=== PATIENT | male | born 1990 | race Caucasian/White ===

== ENCOUNTER 2017-07-12 13:05 | Emergency (ER) | payer MEDICAID ==
[2017-07-12] MEDS ORDERED: Ketorolac 60 MG/2 ML SDV ONE (17:38)
[2017-07-12] MEDS ORDERED: Methocarbamol 500 MG Tab ONE (17:45)
[2017-07-12] MEDS ORDERED: Ibuprofen 800 MG Tab ONE (17:45)
[2017-07-12] MEDS ORDERED: predniSONE 10 MG Tab ONE (17:45)
[2017-07-12 17:59] VITALS: BP 155/77
--- NOTE | 2017-07-12 20:17 | EDM.PDOC ---
ED HPI GENERAL MEDICAL PROBLEM - General Chief Complaint: Back Pain or Injury Stated Complaint: BACK PAIN Time Seen by Provider: 07/12/17 17:20 Source of Information: Reports: Patient History Limitations: Reports: No Limitations - History of Present Illness INITIAL COMMENTS - FREE TEXT/NARRATIVE: According to patient he was getting out of his bed in the morning and felt a sudden sharp pain in his right lower back and buttock and since then he has been having pain in his right buttock. Pain radiates into his posterior thigh. he feels tingling his right leg on and off. Pain get worse with certain twisting movement of the lower back and not constant. but gets to severity 10/ 10 at times. He has tried some motrin at home. no weakness in the extremities. No saddle numbness. No incontinence of urine or stool. No fall or trauma to the back. Onset: Today Onset Date: 07/12/17 Onset Time: 07:00 Severity: Severe Worsens with: Reports: Movement Associated Symptoms: Denies: Confusion, Fever/Chills, Headaches, Loss of Appetite, Nausea/Vomiting, Rash, Seizure, Shortness of Breath, Weakness - Related Data Allergies Allergy/AdvReac Type Severity Reaction Status Date / Time Penicillins Allergy Swelling Verified 11/20/16 01:21 Home Meds: Home Meds NK [No Known Home Meds] 07/21/14 [History] Past Medical History HEENT History: Reports: Impaired Vision Musculoskeletal History: Reports: Fracture Neurological History: Reports: Headaches, Chronic, Migraines Psychiatric History: Reports: Anxiety Dermatologic History: Reports: Psoriasis - Infectious Disease History Infectious Disease History: Reports: Chicken Pox - Past Surgical History Musculoskeletal Surgical History: Reports: Other (See Below) Social & Family History - Family History Family Medical History: Noncontributory - Tobacco Use Smoking Status *Q: Current Every Day Smoker Years of Tobacco use: 13 Packs/Tins Daily: 1 Used Tobacco, but Quit: No Second Hand Smoke Exposure: No - Caffeine Use Caffeine Use: Reports: Coffee, Energy Drinks, Soda - Alcohol Use Days Per Week of Alcohol Use: 2 Number of Drinks Per Day: 12 Total Drinks Per Week: 24 - Recreational Drug Use Recreational Drug Use: No Drug Use in Last 12 Months: Yes Recreational Drug Type: Reports: Marijuana/Hashish ED ROS GENERAL - Review of Systems Review Of Systems: See Below Constitutional: Denies: Fever, Chills, Decreased Appetite HEENT: Denies: Throat Pain, Throat Swelling Respiratory: Denies: Cough, Sputum Cardiovascular: Denies: Chest Pain, Lightheadedness GI/Abdominal: Denies: Abdominal Pain, Nausea, Vomiting Musculoskeletal: Reports: Back Pain. Denies: Joint Pain, Joint Swelling Skin: Denies: Pruritis, Rash Neurological: Denies: Confusion, Dizziness, Headache, Tingling, Difficulty Walking ED EXAM, GENERAL - Physical Exam Exam: See Below Exam Limited By: No Limitations General Appearance: Alert, WD/WN, Mild Distress Eye Exam: Bilateral Eye: EOMI, PERRL Ears: Normal External Exam, Normal Canal, Hearing Grossly Normal, Normal TMs Nose: Normal Inspection, Normal Mucosa, No Blood Throat/Mouth: Normal Inspection, Normal Lips, Normal Teeth, Normal Gums, Normal Oropharynx, Normal Voice, No Airway Compromise Head: Atraumatic, Normocephalic Neck: Normal Inspection, Supple, Non-Tender, Full Range of Motion Respiratory/Chest: No Respiratory Distress, Lungs Clear, Normal Breath Sounds, No Accessory Muscle Use, Chest Non-Tender Cardiovascular: Normal Peripheral Pulses, Regular Rate, Rhythm, No Edema, No Gallop, No JVD, No Murmur, No Rub Back Exam: Normal Inspection, Full Range of Motion, Paraspinal Tenderness ( right lower lumbar.), Other (tender over the right SI joitn to pressure. Spasm of the right gluteal muscles.). No: Vertebral Tenderness Course - Vital Signs Text/Narrative:: Pt reassured that he has strained his right SI joint with gluteal muscle spasm. Might have happened from sudden turning activity, and patient is tall big candace. The gluteal muscle spasm is irritating his sciatic nerve causing the tingling. pt did receive toradol 60mg IM in the emergency room. I have advised intermittent heat to the right lower back every 2-3 hrs. motrin 800mg 3 times daily. Tapering dose of prednisone. Robaxin 100mg at bedtime. Avoid driving when on robaxin. Rest. Followup in clinic if not better for further workup. Last Recorded V/S: Last Vital Signs Temp 97.7 F 07/12/17 17: Pulse 89 07/12/17 17: Resp 20 07/12/17 17: BP 155/77 H 07/12/17 17:29 Pulse Ox 99 07/12/17 17:29 - Orders/Labs/Meds Meds: Medications Discontinued Medications Generic Name Dose Route Start Last Admin Trade Name Danyell PRN Reason Stop Dose Admin Ketorolac Tromethamine Confirm 07/12/17 17:38 07/12/17 17:35 Toradol Administered 07/12/17 17:39 60 mg Dose Administration 60 mg .ROUTE .STK-MED ONE Departure - Departure Time of Disposition: 17:40 Disposition: Home, Self-Care 01 Condition: Good Clinical Impression: Sacroiliac strain - Discharge Information Referrals: PCP,None [Primary Care Provider] - Forms: ED Department Discharge Additional Instructions: Take meds as ordered, Prednisone 10mg tab, take 6 tabs day 1, day 2 take 5 tabs , day 3 take 4 tabs, day 4 take 3 tabs. Methocaramol 500mg at bedtime, Ibuprophen 800mg take 1 tab every 8 hrs. - Problem List & Annotations (1) Sacroiliac strain SNOMED Code(s): 475128391 Code(s): S39.012A - STRAIN OF MUSCLE, FASCIA AND TENDON OF LOWER BACK, INIT Status: Acute Current Visit: Yes - Problem List Review Problem List Initiated/Reviewed/Updated: Yes - Assessment/Plan Assessment:: Right SI joint strain Plan: Pt reassured that he has strained his right SI joint with gluteal muscle spasm. Might have happened from sudden turning activity, and patient is tall big candace. The gluteal muscle spasm is irritating his sciatic nerve causing the tingling. pt did receive toradol 60mg IM in the emergency room. I have advised intermittent heat to the right lower back every 2-3 hrs. motrin 800mg 3 times daily. Tapering dose of prednisone. Robaxin 100mg at bedtime. Avoid driving when on robaxin. Rest. Followup in clinic if not better for further workup.
== END 2017-07-12 17:52 | disposition home or self-care (01) ==
LOC: LB.ED 13:05
DX: S39.012A Strain of muscle, fascia and tendon of lower back, initial encounter (principal); L40.9 Psoriasis, unspecified; F17.210 Nicotine dependence, cigarettes, uncomplicated; Z88.0 Allergy status to penicillin; X50.1XXA Overexertion from prolonged static or awkward postures, initial encounter
CPT/HCPCS: 99283; A9270; J1885

== ENCOUNTER 2017-12-19 04:59 | Emergency (ER) | payer SELFPAY ==
[2017-12-19] MEDS ORDERED: Sodium Chloride 0.9% 10 ML Syringe FLUSH PRN (05:10)
[2017-12-19] MEDS ORDERED: Ondansetron 4 MG/2 ML SDV IVPUSH ONE (05:11)
[2017-12-19] MEDS ORDERED: Sodium Chloride 0.9% 1,000 ML IV SCH (05:15)
[2017-12-19] MEDS ORDERED: Ondansetron 4 MG Tab.DIS ONE (05:25)
--- NOTE | 2017-12-19 06:45 | EDM.PDOC ---
ED HPI GENERAL MEDICAL PROBLEM - General Chief Complaint: Abdominal Pain Stated Complaint: abd pain Time Seen by Provider: 12/19/17 05:20 Source of Information: Reports: Patient History Limitations: Reports: No Limitations - History of Present Illness INITIAL COMMENTS - FREE TEXT/NARRATIVE: Patient started having Nausea, vomiting and crampy abdominal pain since Midnight. He had a bowel movement at 03:00 that was normal. No blood in emesis or bowel movement. The pain comes and goes when he vomits. He was pain free by the time we were evaluating him in the ED. No urinary symptoms or fever but he has felt chilled. Onset: Today, Sudden Onset Date: 12/19/17 Onset Time: 00:01 Duration: Hour(s): (5), Waxing/Waning Location: Reports: Abdomen Quality: Reports: Other (Cramping) Severity: Moderate Improves with: Reports: Other (Vomiting) Worsens with: Reports: None Context: Reports: Other (Stomach flu is occurring in the community.) Associated Symptoms: Reports: Fever/Chills, Loss of Appetite Left Upper Abdominal Pain Score (Numeric/FACES): 5 - Related Data Allergies Allergy/AdvReac Type Severity Reaction Status Date / Time Penicillins Allergy Swelling Verified 11/20/16 01:21 Home Meds: Home Meds NK [No Known Home Meds] 07/21/14 [History] Past Medical History HEENT History: Reports: Allergic Rhinitis, Impaired Vision Gastrointestinal History: Reports: Other (See Below) Other Gastrointestinal History: abd pain Musculoskeletal History: Reports: Fracture Neurological History: Reports: Headaches, Chronic, Migraines Psychiatric History: Reports: Anxiety Dermatologic History: Reports: Psoriasis - Infectious Disease History Infectious Disease History: Reports: Chicken Pox - Past Surgical History Musculoskeletal Surgical History: Reports: Other (See Below) Social & Family History - Family History Family Medical History: Noncontributory - Tobacco Use Smoking Status *Q: Current Every Day Smoker Years of Tobacco use: 10 Packs/Tins Daily: 1 Used Tobacco, but Quit: No Second Hand Smoke Exposure: No - Caffeine Use Caffeine Use: Reports: Coffee, Energy Drinks, Soda, Tea - Alcohol Use Days Per Week of Alcohol Use: 1 Number of Drinks Per Day: 1 Total Drinks Per Week: 1 - Recreational Drug Use Recreational Drug Use: Yes Drug Use in Last 12 Months: Yes Recreational Drug Type: Reports: Marijuana/Hashish Recreational Drug Use Frequency: Daily ED ROS GENERAL - Review of Systems Review Of Systems: See Below Constitutional: Reports: Chills, Decreased Appetite HEENT: Reports: No Symptoms Respiratory: Reports: No Symptoms Cardiovascular: Reports: No Symptoms Endocrine: Reports: No Symptoms GI/Abdominal: Reports: Abdominal Pain (Crampy pain that comes and goes with emesis.), Decreased Appetite, Vomiting : Reports: No Symptoms Musculoskeletal: Reports: No Symptoms Skin: Reports: No Symptoms Neurological: Reports: No Symptoms Psychiatric: Reports: No Symptoms Hematologic/Lymphatic: Reports: No Symptoms Immunologic: Reports: No Symptoms ED EXAM, GI/ABD - Physical Exam Exam: See Below Exam Limited By: No Limitations General Appearance: Alert, WD/WN, No Apparent Distress Eyes: Bilateral: Normal Appearance, EOMI Ears: Normal External Exam, Normal Canal, Hearing Grossly Normal, Normal TMs Nose: Normal Inspection, Normal Mucosa, No Blood Throat/Mouth: Normal Inspection, Normal Lips, Normal Teeth, Normal Gums, Normal Oropharynx, Normal Voice, No Airway Compromise Head: Atraumatic, Normocephalic Neck: Normal Inspection, Supple, Non-Tender, Full Range of Motion Respiratory/Chest: No Respiratory Distress, Lungs Clear, Normal Breath Sounds, No Accessory Muscle Use, Chest Non-Tender Cardiovascular: Normal Peripheral Pulses GI/Abdominal Exam: Normal Bowel Sounds, Soft, Non-Tender, No Organomegaly, No Distention, No Abnormal Bruit, No Mass, Pelvis Stable Back Exam: Normal Inspection, Full Range of Motion, NT Extremities: Normal Inspection, Normal Range of Motion, Non-Tender, Normal Capillary Refill, No Pedal Edema Neurological: Alert, Oriented, CN II-XII Intact, Normal Cognition, Normal Gait, Normal Reflexes, No Motor/Sensory Deficits Psychiatric: Normal Affect, Normal Mood Skin Exam: Warm, Dry, Intact, Normal Color, No Rash Lymphatic: No Adenopathy Course - Vital Signs Text/Narrative:: Uneventful ED course. He got immediate relieft with IV Zofran and IV Normal Saline. His labs and CT scan of the abdomen were all normal and he will go home on Zofran 4 mg po q 6 hours prn, clear liquid diet and advance as tolerated and follow up with PCP this week or in ED if not getting better. Last Recorded V/S: Last Vital Signs Temp 36.9 C 12/19/17 05:23 Pulse 94 12/19/17 05:23 Resp 18 12/19/17 05:23 BP Pulse Ox 99 12/19/17 05:23 - Orders/Labs/Meds Orders: Active Orders 24 hr Category Date Time Status Abdomen Pelvis w Cont [CT] Stat Exams 12/19/17 05:09 Taken Sodium Chloride 0.9% [Normal Saline] 1,000 ml Med 12/19/17 05:15 Active IV ASDIRECTED Sodium Chloride 0.9% [Saline Flush] Med 12/19/17 05:10 Active 10 ml FLUSH ASDIRECTED PRN Saline Lock Insert [OM.PC] Routine Oth 12/19/17 05:10 Ordered Medication Orders Sodium Chloride (Normal Saline) 1,000 mls @ 1,000 mls/hr IV ASDIRECTED KAMLESH Sodium Chloride (Saline Flush) 10 ml FLUSH ASDIRECTED PRN PRN Reason: Keep Vein Open Labs: Laboratory Tests 12/19/17 12/19/17 12/19/17 Range/Units 05:15 05:15 06:00 WBC 11.0 D (4.0-11.0) K/uL RBC 5.26 (4.50-6.50) M/uL Hgb 16.4 (13.0-18.0) g/dL Hct 45.6 (40.0-54.0) % MCV 87 (76-96) fL MCH 31.2 (27.0-32.0) pg MCHC 36.0 H (31.0-35.0) g/dL RDW 12.5 (11.0-16.0) % Plt Count 149 L (150-400) K/uL MPV 11.3 H (6.0-10.0) fL Neut % (Auto) 90.9 H (45.0-70.0) % Lymph % (Auto) 3.6 L (20.0-40.0) % [place] % (Auto) 4.7 (3.0-10.0) % Eos % (Auto) 0.7 L (1.0-5.0) % Baso % (Auto) 0.1 (0.0-0.5) % Neut # (Auto) 10.02 H (2.00-7.50) K/uL Lymph # (Auto) 0.40 L (1.50-4.00) K/uL [place] # (Auto) 0.52 (0.20-0.80) K/uL Eos # (Auto) 0.08 (0.04-0.40) K/uL Baso # (Auto) 0.01 L (0.02-0.10) K/uL Sodium 139 (136-145) mmol/L Potassium 3.9 (3.5-5.1) mmol/L Chloride 102 (98-107) mmol/L Carbon Dioxide 25.6 (21.0-32.0) mmol/L Anion Gap 15.3 H (5.0-15.0) mmol/L BUN 15 (8-26) mg/dL Creatinine 1.02 (0.70-1.30) mg/dL Est Cr Clr Drug Dosing TNP Estimated GFR (MDRD) > 60 (>60) MLS/MIN BUN/Creatinine Ratio 14.7 (6-25) Glucose 138 H D (74-100) mg/dL Calcium 8.6 (8.5-10.1) mg/dL Total Bilirubin 0.7 D (0.0-1.0) mg/dL AST 15 (15-37) U/L ALT 46 (12-78) U/L Alkaline Phosphatase 68 (46-116) U/L Total Protein 7.5 (6.4-8.2) g/dL Albumin 4.1 (3.4-5.0) g/dL Globulin 3.4 (2.2-4.2) g/dL Albumin/Globulin Ratio 1.2 (0.8-2.0) Urine Color Yellow Urine Appearance Clear (CLEAR) Urine pH 8.5 H (5.0-8.0) Ur Specific [place] 1.020 (1.003-1.030) Urine Protein Trace H (NEGATIVE) mg/dL Urine Glucose (UA) Negative (NEGATIVE) mg/dL Urine Ketones Negative (NEGATIVE) mg/dL Urine Occult Blood Negative (NEGATIVE) Urine Nitrite Negative (NEGATIVE) Urine Bilirubin Negative (NEGATIVE) Urine Urobilinogen 0.2 (0.2-1.0) E.U./dL Ur Leukocyte Esterase Negative (NEGATIVE) Urine RBC Not seen /HPF Urine WBC 0-5 H /HPF Ur Squamous Epith Cells Few /HPF Meds: Medications Generic Name Dose Route Start Last Admin Trade Name Freq PRN Reason Stop Dose Admin Sodium Chloride 1,000 mls @ 1,000 mls/hr 12/19/17 05:15 Normal Saline IV ASDIRECTED KAMLESH Sodium Chloride 10 ml 12/19/17 05:10 Saline Flush FLUSH ASDIRECTED PRN Keep Vein Open Discontinued Medications Generic Name Dose Route Start Last Admin Trade Name Freq PRN Reason Stop Dose Admin Ondansetron HCl 4 mg 12/19/17 05:11 12/19/17 05:23 Zofran IVPUSH 12/19/17 05:12 4 mg ONETIME ONE Administration Departure - Departure Time of Disposition: 06:51 Disposition: Home, Self-Care 01 Condition: Good Clinical Impression: Gastroenteritis and colitis, viral - Discharge Information Referrals: PCP,None [Primary Care Provider] - - My Orders Last 24 Hours: My Active Orders 12/19/17 05:09 Abdomen Pelvis w Cont [CT] Stat 12/19/17 05:10 Sodium Chloride 0.9% [Saline Flush] 10 ml FLUSH ASDIRECTED PRN Saline Lock Insert [OM.PC] Routine 12/19/17 05:15 Sodium Chloride 0.9% [Normal Saline] 1,000 ml IV ASDIRECTED - Assessment/Plan Last 24 Hours: My Active Orders 12/19/17 05:09 Abdomen Pelvis w Cont [CT] Stat 12/19/17 05:10 Sodium Chloride 0.9% [Saline Flush] 10 ml FLUSH ASDIRECTED PRN Saline Lock Insert [OM.PC] Routine 12/19/17 05:15 Sodium Chloride 0.9% [Normal Saline] 1,000 ml IV ASDIRECTED
--- NOTE | 2017-12-19 08:27 | CT ---
DATE OF SERVICE: 12/19/17 CLINICAL DATA: Abdominal pain ENHANCED ABDOMEN AND PELVIC CT: Multislice acquisition through the abdomen and pelvis with IV, but without oral contrast was performed. Breathing motion artifact degrades image quality. No priors. The lung bases appear clear. There is diffuse fatty infiltration of the liver. No focal hepatic lesions. The gallbladder appears normal. The spleen appears normal. 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 The pancreas appears normal. The right and left adrenals appear normal. The right and left kidneys appear normal. No nephrocalcinosis or nephrolithiasis. No hydronephrosis or hydroureter. The bladder is partially fluid-filled and appears normal. The appendix is not dilated. No evidence of appendicitis. There are a few scattered air-fluid levels within the small bowel. No dilated loops of bowel. Enteritis should be considered. No free air. No free fluid. No dilated loops of bowel. No adenopathy. No aortic aneurysm or dissection. The bladder is partially fluid-filled. It appears normal. There is a small umbilical hernia containing fat. IMPRESSION: 1) A few scattered air-fluid levels in the small bowel. No dilated loops of small bowel. Enteritis should be considered. 2) Fatty infiltration of the liver. No other significant findings. [id number] MTDD
== END 2017-12-19 09:01 | disposition home or self-care (01) ==
LOC: LB.ED 04:59
DX: A08.4 Viral intestinal infection, unspecified (principal); F17.210 Nicotine dependence, cigarettes, uncomplicated; Z88.0 Allergy status to penicillin
CPT/HCPCS: 36415; 74177; 80053; 81001; 85025; 96374; 99284; A9270; J2405

== ENCOUNTER 2018-02-03 09:27 | Emergency (ER) | payer MEDICAID ==
--- NOTE | 2018-02-03 09:43 | EDM.PDOC ---
ED HPI GENERAL MEDICAL PROBLEM - General Chief Complaint: Upper Extremity Injury/Pain Stated Complaint: ELBOW PAIN Time Seen by Provider: 02/03/18 09:38 Source of Information: Reports: Patient History Limitations: Reports: No Limitations - History of Present Illness INITIAL COMMENTS - FREE TEXT/NARRATIVE: 27 yr male presents with pain, swelling and bruising to left elbow. States he fell at home about 1 week ago when getting into her vehicle and then fell again Tuesday. States he is in a hurry to get to work and his employment gets upset when people are late for work. Location: Reports: Upper Extremity, Left Severity: Moderate Improves with: Reports: Immobilization, Rest, Other (elevation) Worsens with: Reports: Movement Treatments [employer]HA[employer]: Reports: Other (see below) (reginaldo wrap) Left Elbow Pain Score (Numeric/FACES): 6 - Related Data Allergies Allergy/AdvReac Type Severity Reaction Status Date / Time Penicillins Allergy Swelling Verified 02/03/18 09:37 Home Meds: Home Meds NK [No Known Home Meds] 07/21/14 [History] Past Medical History HEENT History: Reports: Allergic Rhinitis, Impaired Vision Gastrointestinal History: Reports: Other (See Below) Other Gastrointestinal History: abd pain Musculoskeletal History: Reports: Fracture Neurological History: Reports: Headaches, Chronic, Migraines Psychiatric History: Reports: Anxiety Dermatologic History: Reports: Psoriasis - Infectious Disease History Infectious Disease History: Reports: Chicken Pox - Past Surgical History Musculoskeletal Surgical History: Reports: Other (See Below) Social & Family History - Family History Family Medical History: Noncontributory - Tobacco Use Smoking Status *Q: Current Every Day Smoker Years of Tobacco use: 10 Packs/Tins Daily: 1 Used Tobacco, but Quit: No Second Hand Smoke Exposure: No - Caffeine Use Caffeine Use: Reports: Coffee, Energy Drinks, Soda, Tea - Alcohol Use Days Per Week of Alcohol Use: 1 Number of Drinks Per Day: 1 Total Drinks Per Week: 1 - Recreational Drug Use Recreational Drug Use: Yes Drug Use in Last 12 Months: Yes Recreational Drug Type: Reports: Marijuana/Hashish Recreational Drug Use Frequency: Daily Review of Systems - Review of Systems Review Of Systems: See Below Constitutional: Reports: No Symptoms Musculoskeletal: Reports: Arm Pain, Other (swelling to left forearm) Skin: Reports: Bruising ED EXAM, GENERAL - Physical Exam Exam: See Below Exam Limited By: No Limitations General Appearance: Alert, No Apparent Distress Head: Atraumatic, Normocephalic Respiratory/Chest: No Respiratory Distress Extremities: Normal Capillary Refill, Arm Pain, Other (Swelling and bruising noted distal to left elbow, to forearm. Limited extension of left arm at elbow joint.). No: Increased Warmth Neurological: Alert, Oriented Psychiatric: Normal Affect, Normal Mood Skin Exam: Warm, Dry, Intact Course - Vital Signs Last Recorded V/S: Last Vital Signs Temp 98 F 02/03/18 09:56 Pulse 97 02/03/18 09:56 Resp 16 02/03/18 09:56 BP 145/79 H 02/03/18 09:56 Pulse Ox 100 02/03/18 09:56 - Orders/Labs/Meds Orders: Active Orders 24 hr Category Date Time Status Elbow Min 3V Lt [CR] Stat Exams 02/03/18 09:40 Taken - Re-Assessments/Exams Free Text/Narrative Re-Assessment/Exam: 02/03/18 15:56 LE 10:05 X-ray to left elbow completed. Old fracture noted to elbow. Pt states he did injure this arm about 1 year ago. Reginaldo wrap applied to area. Recommend reginaldo wrap to area, ice to area for 48 hour, keep arm elevated at level of heart, not above head and not dangling. No heavy lifting, pushing or pulling with left arm. 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 Note to be off of work for 48 hour to rest arm. Departure - Departure Time of Disposition: 10:10 Disposition: Home, Self-Care 01 Condition: Good Clinical Impression: Injury of left forearm - Discharge Information Referrals: PCP,None [Ordering Only Provider] - Forms: ED Department Discharge Additional Instructions: Ice to area and elevate as much as possible. Can use ibuprofen take 600 mg or 3 tablets 4 x day. Limit movement as much as possible. - My Orders Last 24 Hours: My Active Orders 02/03/18 09:40 Elbow Min 3V Lt [CR] Stat - Assessment/Plan Last 24 Hours: My Active Orders 02/03/18 09:40 Elbow Min 3V Lt [CR] Stat
[2018-02-03 10:02] VITALS: BP 145/79
--- NOTE | 2018-02-03 17:48 | CR ---
DATE OF SERVICE: 02/03/18 CLINICAL DATA: injury left elbow LEFT ELBOW: No priors. There are multiple osseous densities located adjacent to the lateral aspect of the radial head and lateral epicondyle of the distal humerus. The largest osseous density measures 13 mm in its maximum dimension. These may represent bony avulsions or loose bodies. They could be ossification within the lateral collateral ligament complex. No joint effusion. No other significant findings. [id number] [facility]
== END 2018-02-03 10:20 | disposition home or self-care (01) ==
LOC: LB.ED 09:27
DX: S50.12XA Contusion of left forearm, initial encounter (principal); F17.210 Nicotine dependence, cigarettes, uncomplicated; Z88.0 Allergy status to penicillin; W19.XXXA Unspecified fall, initial encounter
CPT/HCPCS: 73080-LT; 99283

== ENCOUNTER 2018-11-24 07:05 | Emergency (ER) | payer MEDICAID, OTHER ==
[2018-11-24] MEDS ORDERED: Cyclobenzaprine 10 MG Tab ONE (07:25)
[2018-11-24] MEDS ORDERED: predniSONE 10 MG Tab ONE (07:25)
[2018-11-24] MEDS ORDERED: Acetaminophen/HYDROcodone 325-5 MG Tab ONE (07:25)
[2018-11-24 07:29] VITALS: BP 129/66
--- NOTE | 2018-11-28 08:02 | EDM.PDOC ---
ED HPI GENERAL MEDICAL PROBLEM - General Chief Complaint: Neck Problem Stated Complaint: LUMP ON NECK Time Seen by Provider: 11/24/18 07:39 Source of Information: Reports: Patient History Limitations: Reports: No Limitations - History of Present Illness INITIAL COMMENTS - FREE TEXT/NARRATIVE: This is a 28yo M here for neck pain. He has had difficulty moving the neck since this am and is facing left. He has not had any recent injuries and denies any neck issues in the past. Onset: Sudden Duration: Hour(s): Location: Reports: Neck Quality: Reports: Ache Severity: Severe Improves with: Reports: None Worsens with: Reports: Movement Associated Symptoms: Reports: No Other Symptoms Neck Pain Score (Numeric/FACES): 10 - Related Data Allergies Allergy/AdvReac Type Severity Reaction Status Date / Time Penicillins Allergy Swelling Verified 02/03/18 09:37 Home Meds: Home Meds NK [No Known Home Meds] 07/21/14 [History] Past Medical History - Past Health History Medical/Surgical History: Denies Medical/Surgical History HEENT History: Reports: Allergic Rhinitis, Impaired Vision Gastrointestinal History: Reports: Other (See Below) Other Gastrointestinal History: abd pain Musculoskeletal History: Reports: Fracture, Other (See Below) Other Musculoskeletal History: hx fractured left arm Neurological History: Reports: Headaches, Chronic, Migraines Psychiatric History: Reports: Anxiety Dermatologic History: Reports: Psoriasis - Infectious Disease History Infectious Disease History: Reports: Chicken Pox - Past Surgical History Musculoskeletal Surgical History: Reports: Other (See Below) Other Musculoskeletal Surgeries/Procedures:: left arm deformed due to fracture not healing correctly Social & Family History - Family History Family Medical History: Noncontributory - Tobacco Use Smoking Status *Q: Current Every Day Smoker Years of Tobacco use: 10 Packs/Tins Daily: 0.5 Used Tobacco, but Quit: No Second Hand Smoke Exposure: No - Caffeine Use Caffeine Use: Reports: Coffee - Recreational Drug Use Recreational Drug Use: Yes Recreational Drug Type: Reports: Marijuana/Hashish Recreational Drug Use Frequency: Rarely ED ROS GENERAL - Review of Systems Review Of Systems: ROS reveals no pertinent complaints other than HPI. ED EXAM, GENERAL - Physical Exam Exam: See Below Exam Limited By: No Limitations General Appearance: Alert, WD/WN, Moderate Distress Eye Exam: Bilateral Eye: EOMI, PERRL Ears: Normal External Exam Nose: Normal Inspection Throat/Mouth: Normal Inspection Head: Atraumatic, Normocephalic Neck: Limited Range of Motion, Tender Lateral Respiratory/Chest: No Respiratory Distress, Lungs Clear, Normal Breath Sounds Cardiovascular: Normal Peripheral Pulses, Regular Rate, Rhythm GI/Abdominal: Normal Bowel Sounds Extremities: Normal Inspection Neurological: Alert, Oriented, CN II-XII Intact Psychiatric: Normal Affect, Normal Mood Skin Exam: Warm, Dry, Intact Course - Vital Signs Last Recorded V/S: Last Vital Signs Temp 36.1 C 11/24/18 07:27 Pulse 86 11/24/18 07:27 Resp 16 11/24/18 07:27 BP 129/66 11/24/18 07:27 Pulse Ox 99 11/24/18 07:27 - Orders/Labs/Meds Meds: Medications Discontinued Medications Generic Name Dose Route Start Last Admin Trade Name Freq PRN Reason Stop Dose Admin Hydrocodone Bitart/Acetaminophen 10 tab 11/24/18 07:25 [place] 325-5 Mg .ROUTE 11/24/18 07:26 .STK-MED ONE Cyclobenzaprine HCl 150 mg 11/24/18 07:25 Flexeril .ROUTE 11/24/18 07:26 .STK-MED ONE Prednisone 150 mg 11/24/18 07:25 Prednisone .ROUTE 11/24/18 07:26 .STK-MED ONE Departure - Departure Time of Disposition: 07:50 Disposition: Home, Self-Care 01 Condition: Good Clinical Impression: Torticollis Neck muscle strain Qualifiers: Encounter type: initial encounter Qualified Code(s): S16.1XXA - Strain of muscle, fascia and tendon at neck level, initial encounter - Discharge Information Instructions: Acetaminophen; Hydrocodone tablets or capsules, Cyclobenzaprine tablets, Muscle Strain, [id number], Prednisone tablets Referrals: PCP,None [Primary Care Provider] - Forms: ED Department Discharge - Problem List & Annotations (1) Neck muscle strain SNOMED Code(s): 626713204 Code(s): S16.1XXA - STRAIN OF MUSCLE, FASCIA AND TENDON AT NECK LEVEL, INIT Status: Acute Priority: High Qualifiers: Encounter type: initial encounter Qualified Code(s): S16.1XXA - Strain of muscle, fascia and tendon at neck level, initial encounter (2) Torticollis SNOMED Code(s): 75307721, 049867119 Code(s): M43.6 - TORTICOLLIS Status: Acute Priority: High - Problem List Review Problem List Initiated/Reviewed/Updated: Yes - Assessment/Plan Plan: Counseled on supportive care, note for work, medication use and side effects, close monitoring and f/u as directed with PCP. Rtc or ER if symptoms persist or worsen.
== END 2018-11-24 08:00 | disposition home or self-care (01) ==
LOC: LB.ED 07:05
DX: S16.1XXA Strain of muscle, fascia and tendon at neck level, initial encounter (principal); M43.6 Torticollis; F17.210 Nicotine dependence, cigarettes, uncomplicated; Z88.0 Allergy status to penicillin; X58.XXXA Exposure to other specified factors, initial encounter
CPT/HCPCS: 99283; A9270-GY

== ENCOUNTER 2019-01-18 07:25 | Emergency (ER) | payer MEDICAID ==
[2019-01-18 07:43] VITALS: BP 132/85
--- NOTE | 2019-01-18 10:35 | EDM.PDOC ---
ED HPI GENERAL MEDICAL PROBLEM - General Chief Complaint: Skin Complaint Stated Complaint: POSSIBLE SHINGLES Time Seen by Provider: 01/18/19 08:21 Source of Information: Reports: Patient History Limitations: Reports: No Limitations - History of Present Illness INITIAL COMMENTS - FREE TEXT/NARRATIVE: Pt is a 28 year old male, presents to emergency room today.he has been having low back pain in a small localized are for past 2 days. Pain is sharp and severe last for few seconds to minute. Come and goes. Touch triggers pain or evening the cloth rubbing against it causes pain. Today he has noticed some rash , and the pain has changed to burning and stinging, with tingling in the rash. He has had mild URI symptoms for past 1 wk, but no fever esteban chills. Other raphael feels fine. 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 Lower Mid-Posterior Back Pain Score (Numeric/FACES): 7 - Related Data Allergies Allergy/AdvReac Type Severity Reaction Status Date / Time Penicillins Allergy Swelling Verified 01/18/19 07:37 Home Meds: Home Meds NK [No Known Home Meds] 07/21/14 [History] Past Medical History - Past Health History Medical/Surgical History: Denies Medical/Surgical History HEENT History: Reports: Allergic Rhinitis, Impaired Vision Gastrointestinal History: Reports: Other (See Below) Other Gastrointestinal History: abd pain Musculoskeletal History: Reports: Fracture, Other (See Below) Other Musculoskeletal History: hx fractured left arm Neurological History: Reports: Headaches, Chronic, Migraines Psychiatric History: Reports: Anxiety Dermatologic History: Reports: Psoriasis - Infectious Disease History Infectious Disease History: Reports: Chicken Pox - Past Surgical History Musculoskeletal Surgical History: Reports: Other (See Below) Other Musculoskeletal Surgeries/Procedures:: left arm deformed due to fracture not healing correctly Social & Family History - Family History Family Medical History: Noncontributory - Tobacco Use Smoking Status *Q: Current Every Day Smoker Years of Tobacco use: 11 Packs/Tins Daily: 1 Used Tobacco, but Quit: No Second Hand Smoke Exposure: Yes - Caffeine Use Caffeine Use: Reports: Coffee, Soda - Recreational Drug Use Recreational Drug Use: Yes Drug Use in Last 12 Months: Yes Recreational Drug Type: Reports: Marijuana/Hashish Recreational Drug Use Frequency: Rarely ED ROS GENERAL - Review of Systems Review Of Systems: See Below Constitutional: Denies: Fever, Chills, Malaise, Weakness HEENT: Reports: Rhinitis. Denies: Sinus Problem, Throat Pain, Throat Swelling Respiratory: Denies: Shortness of Breath, Pleuritic Chest Pain, Cough, Sputum Cardiovascular: Denies: Chest Pain, Lightheadedness Endocrine: Denies: Fatigue GI/Abdominal: Denies: Abdominal Pain, Nausea, Vomiting : Denies: Dysuria Musculoskeletal: Reports: Back Pain. Denies: Joint Pain, Joint Swelling Skin: Reports: Rash, Erythema. Denies: Bruising, Pruritis Neurological: Reports: Numbness, Tingling. Denies: Confusion, Dizziness, Headache ED EXAM, SKIN/RASH Exam: See Below Exam Limited By: No Limitations General Appearance: Alert, WD/WN, No Apparent Distress Eye Exam: Bilateral Eye: EOMI, PERRL Ears: Normal External Exam, Normal Canal, Hearing Grossly Normal, Normal TMs Nose: Normal Inspection, Normal Mucosa, No Blood Throat/Mouth: Normal Inspection, Normal Lips, Normal Teeth, Normal Gums, Normal Oropharynx, Normal Voice, No Airway Compromise Head: Atraumatic, Normocephalic Neck: Normal Inspection, Supple, Non-Tender, Full Range of Motion Respiratory/Chest: No Respiratory Distress, Lungs Clear, Normal Breath Sounds, No Accessory Muscle Use, Chest Non-Tender Cardiovascular: Normal Peripheral Pulses, Regular Rate, Rhythm, No Edema, No Gallop, No JVD, No Murmur, No Rub Skin: Warm, Intact, Zoster-Like Rash (Patient has bright red rash over the loer back. there are small vesicle noted wihtin the lesion. The rash is very sensitive to tocuh and tender. ) Course - Vital Signs Text/Narrative:: Pt has developed crop of vesicles over pink base noted over the lower back. Signs do appear like herpes zoster. pt reassured. I have started him on valtrex 1 gm TID. Advised motrin 800mg 3 times daily for pain. Calamine lotion over the lesion. Avoid scratching the lesion. For nocturnal pain, have given script for gabapentin 300mg at bedtime. Rash should clear up with scabbing in next 2-3 days. Followup in clinic if symptoms worsen. Last Recorded V/S: Last Vital Signs Temp 96 F 01/18/19 07:40 Pulse 102 H 01/18/19 07:40 Resp 16 01/18/19 07:40 BP 132/85 01/18/19 07:40 Pulse Ox 99 01/18/19 07:40 Departure - Departure Time of Disposition: 08:45 Disposition: Home, Self-Care 01 Condition: Fair Clinical Impression: Herpes zoster - Discharge Information *PRESCRIPTION DRUG MONITORING PROGRAM REVIEWED*: Not Applicable *COPY OF PRESCRIPTION DRUG MONITORING REPORT IN PATIENT AICHA: Not Applicable Instructions: Gabapentin capsules or tablets, Valacyclovir caplets Referrals: PCP,Unknown [Primary Care Provider] - Forms: ED Department Discharge Care Plan Goals: Do not scratch lesions. Wash hands carefully. Volltex 1 gram by mouth 3 x day for 1 week. Gabapentin 300mg by mouth every night before sleep. - Problem List & Annotations (1) Herpes zoster SNOMED Code(s): 4456512 Code(s): B02.9 - ZOSTER WITHOUT COMPLICATIONS Status: Acute - Problem List Review Problem List Initiated/Reviewed/Updated: Yes - Assessment/Plan Assessment:: Herpes zoster Plan: Pt has developed crop of vesicles over pink base noted over the lower back. Signs do appear like herpes zoster. pt reassured. I have started him on valtrex 1 gm TID. Advised motrin 800mg 3 times daily for pain. Calamine lotion over the lesion. Avoid scratching the lesion. For nocturnal pain, have given script for gabapentin 300mg at bedtime. Rash should clear up with scabbing in next 2-3 days. Followup in clinic if symptoms worsen.
== END 2019-01-18 08:35 | disposition home or self-care (01) ==
LOC: LB.ED 07:25
DX: B02.9 Zoster without complications (principal); F17.210 Nicotine dependence, cigarettes, uncomplicated; Z88.0 Allergy status to penicillin
CPT/HCPCS: 99283

== ENCOUNTER 2019-02-26 11:37 | Emergency (ER) | payer OTHER ==
--- NOTE | 2019-02-26 14:00 | EDM.PDOC ---
ED HPI GENERAL MEDICAL PROBLEM - General Chief Complaint: Upper Extremity Injury/Pain Stated Complaint: LACERATION TO LEFT HAND/FINGER Time Seen by Provider: 02/26/19 11:40 Source of Information: Reports: Patient History Limitations: Reports: No Limitations - History of Present Illness INITIAL COMMENTS - FREE TEXT/NARRATIVE: This patient presents to the ED for evaluation of a finger injury. 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 He denies other injuries or concerns. His last tetanus shot was approximately 1 year ago. Onset: Today, Sudden Onset Date: 02/26/19 Onset Time: 10:30 Location: Reports: Upper Extremity, Right Improves with: Reports: None Worsens with: Reports: None Associated Symptoms: Reports: No Other Symptoms - Related Data Allergies Allergy/AdvReac Type Severity Reaction Status Date / Time Penicillins Allergy Swelling Verified 01/18/19 07:37 Home Meds: Home Meds NK [No Known Home Meds] 07/21/14 [History] Past Medical History - Past Health History Medical/Surgical History: Denies Medical/Surgical History HEENT History: Reports: Allergic Rhinitis, Impaired Vision Gastrointestinal History: Reports: Other (See Below) Other Gastrointestinal History: abd pain Musculoskeletal History: Reports: Fracture, Other (See Below) Other Musculoskeletal History: hx fractured left arm Neurological History: Reports: Headaches, Chronic, Migraines Psychiatric History: Reports: Anxiety Dermatologic History: Reports: Psoriasis - Infectious Disease History Infectious Disease History: Reports: Chicken Pox - Past Surgical History Musculoskeletal Surgical History: Reports: Other (See Below) Other Musculoskeletal Surgeries/Procedures:: left arm deformed due to fracture not healing correctly Social & Family History - Family History Family Medical History: Noncontributory - Caffeine Use Caffeine Use: Reports: Coffee, Soda Review of Systems - Review of Systems Review Of Systems: ROS reveals no pertinent complaints other than HPI. Skin: Reports: Wound ED EXAM, GENERAL - Physical Exam Exam: See Below Exam Limited By: No Limitations General Appearance: Alert, WD/WN, No Apparent Distress Eye Exam: Bilateral Eye: PERRL Ears: Normal External Exam Nose: Normal Inspection Throat/Mouth: Normal Inspection Head: Atraumatic, Normocephalic Neck: Normal Inspection Respiratory/Chest: No Respiratory Distress, No Accessory Muscle Use Skin Exam: Warm, Dry, Wound/Incision (small avulsion to tip of right second digit; CMS intact) ED TRAUMA EXTREMITY PROCEDURES - Laceration/Wound Repair Right Digit - 2nd (Index) Appearance: Superficial Distal NVT: Neuro & Vascular Intact Skin Prep: Chlorhexidine (Hibiciens) Exploration/Debridement/Repair: In a Bloodless Field, Explored to Base Closed With: Dermabond Drain Placement: No Sterile Dressing Applied: Provider Tetanus Status Addressed: Yes Complications: No Course - Re-Assessments/Exams Free Text/Narrative Re-Assessment/Exam: 02/26/19 14:01 This patient presents with a superficial avulsion laceration to palmar tip of right 2nd digit. The wound was carefully evaluated and explored. The laceration was closed with dermabond as noted above. There is no evidence of muscular, tendon, or bony damage with this laceration. No signs of foreign body. Possible complications (infection, scarring) were reviewed with the patient. Follow up with primary care will be indicated as noted in the discharge section. Departure - Departure Time of Disposition: 12:00 Disposition: Home, Self-Care 01 Preliminary Cause of *Q: Cardiac Arrest Condition: Good Clinical Impression: Laceration - Discharge Information *PRESCRIPTION DRUG MONITORING PROGRAM REVIEWED*: No *COPY OF PRESCRIPTION DRUG MONITORING REPORT IN PATIENT AICHA: Not Applicable Referrals: PCP,None [Primary Care Provider] - Forms: ED Department Discharge
== END 2019-02-26 12:10 | disposition home or self-care (01) ==
LOC: LB.ED 11:37
DX: S61.210A Laceration without foreign body of right index finger without damage to nail, initial encounter (principal); Z88.0 Allergy status to penicillin; W26.0XXA Contact with knife, initial encounter
CPT/HCPCS: 12001; 99282

== ENCOUNTER 2024-11-05 06:35 | Emergency (ER) | payer MEDICAID ==
[2024-11-05] MEDS: Ketorolac 30 MG/ML SDV IM ONE (06:50)
[2024-11-05] MEDS ORDERED: Ondansetron 4 MG/2 ML SDV IVPUSH ONE (07:35)
[2024-11-05] MEDS ORDERED: Morphine 4 MG/ML VIAL IVPUSH ONE (07:36)
[2024-11-05] MEDS: Cyclobenzaprine 10 MG Tab PO ONE (07:39)
[2024-11-05 11:15] VITALS: BP 142/85; PULSE 78
[2024-11-05] MEDS ORDERED: Sodium Chloride 0.9% 10 ML Syringe FLUSH PRN (12:13)
== END 2024-11-05 09:38 | disposition home or self-care (01) ==
LOC: LB.ED 06:35
DX: M54.31 Sciatica, right side (principal); I10 Essential (primary) hypertension; F17.210 Nicotine dependence, cigarettes, uncomplicated; Z88.0 Allergy status to penicillin
CPT/HCPCS: 72131; 96372; 99283; A9270-GY; J1885